=== PATIENT | female | born 1965 | race Caucasian/White ===

== ENCOUNTER → 2017-01-02 | Outpatient (CLI) | payer OTHER ==
--- NOTE | 2017-01-11 11:44 | MM ---
Reason for exam: screening (asymptomatic). Last mammogram was performed 4 years and 11 months ago. History: Patient is postmenopausal and has history of other cancer at age 50. Took hormonal contraceptives for 5 years. Physical Findings: A clinical breast exam by your physician is recommended on an annual basis and results should be correlated with mammographic findings. MG Screening Mammo w CAD Bilateral CC and MLO view(s) were taken. Prior study comparison: February 16, 2012, mammogram, performed at [facility]. There are scattered fibroglandular densities. No significant changes when compared with prior studies. ASSESSMENT: Benign, BI-RAD 2 RECOMMENDATION: Routine screening mammogram of both breasts in 1 year.
== END | disposition home or self-care (01) ==
LOC: RADMAMWWP 13:23
PROVIDERS: ATTEND Family Medicine
DX: Z12.31 Encounter for screening mammogram for malignant neoplasm of breast (principal)

== ENCOUNTER → 2017-01-17 | Outpatient (CLI) | payer OTHER ==
--- NOTE | 2017-01-17 11:08 | MR ---
EXAMINATION TYPE: MR cervical spine wo con DATE OF EXAM: 01/17/2017 10:47 AM COMPARISON: 06/01/2011 HISTORY: cervicalgia, lumbago TECHNIQUE: Multiplanar multisequence noncontrast images of the cervical spine are submitted. FINDINGS: There is abnormal signal the C2 level and the C5-C6 level of the spinal cord appears simila r to the prior exam. There is loss of the normal cervical lordosis with reversal of the cervical alig nment. At C2-C3 there is mild degenerative disc disease but no canal stenosis or disc herniation. No foramin al encroachment. At C3-C4 there is mild degenerative disc disease and facet arthropathy. Mild uncovertebral joint hype rtrophy. No canal stenosis or disc herniation. At C4-C5 there is Central disc herniation abuts the anterior margin of the spinal cord appears progre ssed from the previous exam. No displacement or cord. Neural foramina patent. At C5-C6 there is severe degenerative disc disease. Hypertrophic change of the facets and uncovertebr al joints contribute to mild bilateral foraminal encroachment greater on the right At C6-C7 there is moderate to severe degenerative disc disease with discogenic marrow changes. No for aminal encroachment, disc herniation or canal stenosis. At C7-T1 there is no disc herniation, canal stenosis or foraminal encroachment. IMPRESSION: 1. Persistent abnormal signal within the spinal cord at the C2 level and C5-6 level stable from previ ous exam. Also suspect abnormal signal within the pontomedullary junction. Findings compatible with m yelitis or myelomalacia. 2. Multilevel degenerative disc disease with severe changes seen at C5-6 and C6-C7. 3. There is progression at C4-C5 with a central broad-based disc herniation which now abuts the anter ior margin of the spinal cord. No spinal cord displacement. EXAMINATION TYPE: MR lumbar spine wo con DATE OF EXAM: 01/17/2017 10:47 AM COMPARISON: 01/09/2012 HISTORY: cervicalgia, lumbago TECHNIQUE: T1 and T2 axial and sagittal images of the lumbar spine are submitted. FINDINGS: There is no abnormal signal seen within the visualized spinal cord or paraspinal soft tissu es. At L1-2 there is no disc herniation or canal stenosis. Mild facet arthropathy. At L2-3 there is mild facet arthropathy. No disc herniation, canal stenosis, or foraminal encroachmen t. At L3-4 there is facet arthropathy with very minimal right paracentral disc bulging but no canal sten osis or focal herniation. Neural foramina patent. At L4-5 there is right lateral disc bulging with moderate right-sided foraminal encroachment. No [place] l stenosis. Mild to moderate facet arthropathy. At L5-S1 there is moderate to severe degenerative disc disease with facet arthropathy. Mild bilateral foraminal encroachment with circumferential disc bulging but no canal stenosis or focal herniation. IMPRESSION: 1. No abnormal signal within the visualized spinal cord. 2. Right lateral disc small protrusion L4-L5 results in moderate right-sided foraminal encroachment. 3. Disc bulging and hypertrophic changes L5-S1 with mild bilateral foraminal encroachment but no columba l stenosis or focal herniation. 4. Multilevel degenerative disc disease with most marked changes at L5-S1
--- NOTE | 2017-01-17 11:28 | MR ---
MRI BRAIN WITH CONTRAST CLINICAL HISTORY: G35 ms, back and leg pain, weakness, numbness, TECHNIQUE: Multiplanar, multisequence imaging of the brain and brainstem is performed without and wit h IV contrast, 15 cc of Gadolinium is administered intravenously. Demyelinating disease protocol wit h additional Sagittal Flair sequence performed. Comparison: None. FINDINGS: T2 Lesions Present : Yes Approximate Number of Lesions: 67 lesions left cerebral hemisphere pericallosal in location. Approxim ately 4 small right pericallosal lesions. One left-sided the brachium pontis lesion. Locations Identified : Pericallosal, and infratentorial. Size of Largest Lesion(s): 1. 5 mm left centrum semioval bilaterally. 2 2 mm right pericallosal region. Enhancing Lesion(s) Present: None Change from Prior: Not applicable Diffusion weighted images demonstrate no evidence of a recent infarct or other diffusion abnormality. There is no worrisome extra-axial fluid collection. The ventricular system and cisternal spaces ar e normal in size and appearance. The brain volume is age appropriate. Midline structures demonstrate normal morphology. The craniocervical junction appears within normal limits. Post contrast images demonstrate no abnormal enhancement. The dural venous sinuses appear pa tent. The visualized sinuses are clear and the globes are intact. IMPRESSION: 1. Findings compatible with a mild multiple sclerosis. No enhancing lesions or acute process seen at this time.
== END | disposition home or self-care (01) ==
LOC: RADMRIMAIN 09:35
PROVIDERS: ATTEND Nurse Practitioner Acute Care
DX: M50.221 Other cervical disc displacement at C4-C5 level (principal); M50.322 Other cervical disc degeneration at C5-C6 level; M51.27 Other intervertebral disc displacement, lumbosacral region; M51.37 Other intervertebral disc degeneration, lumbosacral region; G35 Multiple sclerosis
CPT/HCPCS: 70553; 72141; 72148; A9577

== ENCOUNTER 2017-01-19 09:50 | Day surgery (SDC) | payer OTHER ==
[2017-01-17 13:28] VITALS: BMI 26.7
[~2017-01-19 09:50] MED LIST: LACTATED RINGERS 1,000 ML IV SCH
[2017-01-19 10:37] VITALS: RESP 16; TEMP 97.9
[2017-01-19] MEDS ORDERED: LIDOCAINE 1% 20 ML VIAL (10MG/ML) FOR IV START INTRADERMA ONE (10:50)
[2017-01-19] MEDS ORDERED: LIDOCAINE 1% INJ 10MG/ML (20 ML MDV) ONE (10:59)
[2017-01-19] MEDS ORDERED: PROPOFOL 10 MG/ML 50 ML VIAL IV ONE (10:59)
--- NOTE | 2017-01-19 11:32 | P.PCN ---
Date of Procedure: 01/19/17 Procedure(s) Performed: Procedure: Total colonoscopy. Preoperative diagnosis: Screening for neoplasia. Postoperative diagnosis: Mild sigmoid diverticulosis with no evidence of acute diverticulitis, strictures, polyps or cancer. Preparation: HalfLytely prep. Sedation: Was provided by anesthesia. Brief clinical history: The patient is a 51-year-old female who is referred for this evaluation for screening for neoplasia. She has no change in bowel habits , bleeding or anemia. She does report symptoms of bloating. No definite dietary intolerance. No family history of colon cancer. Procedure: With the patient on her left lateral decubitus position and after informed consent and adequate sedation, the perianal area was inspected and it did not show any fissures or fistulas. There were no masses felt on digital rectal examination. The Olympus CFQ 160L video colonoscope was then inserted in the rectum in the usual fashion and advanced to the cecum. There was occasional diverticular orifices seen scattered in the distal sigmoid but there was no evidence of acute diverticulitis or strictures. No polyps or tumors were seen. The mucosa appeared healthy. The patient tolerated the procedure well. Plan: The patient was reassured. Discussed dietary measures. She will follow- up with you as planned and I recommended repeat exam in 10 years.
[2017-01-19 12:14] VITALS: BP 141/83; PULSE 94
== END 2017-01-19 12:25 | disposition home or self-care (01) ==
LOC: ORWHC2ENDO 09:50
DX: Z12.11 Encounter for screening for malignant neoplasm of colon (principal); K57.30 Diverticulosis of large intestine without perforation or abscess without bleeding; I10 Essential (primary) hypertension; M79.7 Fibromyalgia; G43.909 Migraine, unspecified, not intractable, without status migrainosus; K21.9 Gastro-esophageal reflux disease without esophagitis; Z79.1 Long term (current) use of non-steroidal anti-inflammatories (NSAID); Z79.899 Other long term (current) drug therapy; Z88.0 Allergy status to penicillin
CPT/HCPCS: G0121; J2001; J2704; 45378

== ENCOUNTER → 2017-03-13 | Outpatient (CLI) | payer OTHER ==
--- NOTE | 2017-03-13 14:54 | CT ---
EXAMINATION TYPE: CT abdomen pelvis wo con DATE OF EXAM: 03/13/2017 COMPARISON: None. HISTORY: Abdominal distension and discomfort for 1-[address] DLP: 378.3 mGycm Automated exposure control for dose reduction was used. FINDINGS: There is a 6.4 mm, slightly irregular nodule in the lateral basal segment of the right lowe r lobe best seen on image 8. No other definite nodules are seen. There is no pleural or pericardial f luid. The heart is not enlarged. Within the abdomen, there is mild distention of the gallbladder. Liver and spleen are normal. Both adrenal glands are normal. There is no evidence of nephrolithiasis or hydronephrosis. Limited views of the pancreas are normal. There is no significant retroperitoneal, iliac or inguinal adenopathy. The uterus and ovaries are normal. The bladder is unremarkable. There is no significant diverticular change and there is no radiographic evidence of diverticulitis. The appendix is mildly prominent measuring 7.8 mm. There is no periappendiceal inflammatory change. Small bowel loops are normal. There is no free fluid and no free air. There is degenerative disc disease and a vacuum phenomena present at L5-S1. There is mild facet arthr opathy at L5-S1 and L4-5. No bony destructive lesion is seen. IMPRESSION: 1. SOLITARY 6.4 MM RIGHT-SIDED PULMONARY NODULE. 2. MILD PROMINENCE OF THE APPENDIX WITHOUT OTHER INFLAMMATORY CHANGES. 3. MILD DEGENERATIVE CHANGE WITHIN THE SPINE.
== END | disposition home or self-care (01) ==
LOC: RADCTMAIN 13:59
PROVIDERS: ATTEND Family Medicine
DX: K38.8 Other specified diseases of appendix (principal)
CPT/HCPCS: 74176

== ENCOUNTER → 2017-03-30 | Outpatient (CLI) | payer OTHER ==
--- NOTE | 2017-03-30 09:29 | US ---
EXAMINATION TYPE: US abdomen limited DATE OF EXAM: 03/30/2017 COMPARISON: 01/12/2017 CLINICAL HISTORY: R74.8 elevated liver enzymes. Patient complains of bloating EXAM MEASUREMENTS: Liver Length: 14.1 cm Gallbladder Wall: 0.2 cm CBD: 0.5 cm Right Kidney: 10.5 x 5.3 x 5.7 cm Pancreas: seen, but not well delineated Liver: slightly heterogeneous Gallbladder: No stones seen Evidence for sonographic Tam's sign: no CBD: wnl Right Kidney: No hydronephrosis or masses seen Limited views of the pancreas show the pancreas to be echogenic and may be fatty infiltrated. The liver is normal in size without biliary dilatation. The gallbladder is normal without cholelithiasis. Gallbladder wall measures 1.6 mm. The distal common hepatic duct measures 4.9 mm. There is no sonographic Tam's sign. The right kidney is normal. The intrahepatic IVC is normal. IMPRESSION: NO ACUTE RIGHT UPPER QUADRANT ABNORMALITY.
--- NOTE | 2017-03-30 11:25 | CT ---
EXAMINATION TYPE: CT chest w con DATE OF EXAM: 03/30/2017 COMPARISON: CT abdomen pelvis 03/13/2017. HISTORY: Solitary pulmonary nodule CT DLP: 563 mGycm, Automated exposure control for dose reduction was used. CONTRAST: Performed injected with 100 ml mL of Omnipaque 300. TECHNIQUE: Axial images were obtained at 5 mm thick sections. Reconstructed images are reviewed on [facility] computer in the coronal plane. FINDINGS: Portion of the thyroid visualized is normal. There is a 0.5 cm nodule within the periphery of the right lung base. Series 4 image 41. Lungs are ot herwise clear. This corresponds to the density identified 6 x 20 17. No enlarged mediastinal or hilar adenopathy is evident. The ascending aorta diameter at the level o f the main pulmonary artery is 3.1 cm. The main pulmonary artery diameter at the bifurcation is 2.[address] sections are obtained through the upper abdomen. There is moderate fatty infiltration of [facility] liver. IMPRESSIONS: 1. Solitary pulmonary nodule right lung base. Follow-up exam in 6 months is recommended.
== END | disposition home or self-care (01) ==
LOC: RADUSMAIN 08:48
PROVIDERS: ATTEND Family Medicine
DX: R91.1 Solitary pulmonary nodule (principal); R74.8 Abnormal levels of other serum enzymes
CPT/HCPCS: 76705; 71260; Q9967

== ENCOUNTER 2017-05-10 15:34 | Inpatient (IN) | payer OTHER ==
[2017-05-10] MEDS ORDERED: SODIUM CHLORIDE 0.9% 1,000 ML IV STA ×2 (16:35→19:05)
[2017-05-10] MEDS ORDERED: SODIUM CHLORIDE 0.9% 500 ML IV STA (16:35)
[2017-05-10 17:17] LABS: Basophils % (A) 0 %; CH 32.8; CHCM 33.3; Eosinophils # (A) 0.2 k/uL (0-0.7); Eosinophils % (A) 2 %; HCT 34.2 % (34.0-46.0); HDW 1.99; HGB 11.4 gm/dL (11.4-16.0); Luc # (Auto) 0.16; Luc % (Auto) 2; Lymphocytes % (A) 12 %; MCH 32.8 pg (25.0-35.0); MCHC 33.3 g/dL (31.0-37.0); MCV 98.6 fL (80.0-100.0); Mean Platelet Volume 8.1; Monocytes # (A) 0.6 k/uL (0-1.0); Monocytes % (A) 7 %; Neutrophils # (A) 6.3 k/uL (1.3-7.7); Neutrophils % (A) 77 %; RBC 3.47 m/uL (3.80-5.40); RDW 13.2 % (11.5-15.5); WBC 8.2 k/uL (3.8-10.6); WBC (Perox) 8.25
[2017-05-10 17:19] LABS: Appearance,Urine Cloudy (Clear); Bacteria,Urine Few /hpf; Bilirubin,Urine Negative (Negative); Glucose,Urine (UA) Negative (Negative); Ketones,Urine Negative (Negative); Leukocyte Esterase,Urine Negative (Negative); Mucus,Urine Rare /hpf; Nitrite,Urine Negative (Negative); PH, Urine 5.5 (5.0-8.0); Particle Count 10812; Protein,Urine 1+ (Negative); RBC,Urine 2 /hpf (0-5); Specific Gravity,Urine 1.013 (1.001-1.035); Squamous Epithelial Cell,Urine 13 /hpf (0-4); UA Billing (MACRO vs. MICRO) MICRO; Urobilinogen,Urine <2.0 mg/dL (<2.0); WBC,Urine 6 /hpf (0-5)
[2017-05-10 17:25] LABS: Prothrombin Time 9.9 sec (9.0-12.0)
[2017-05-10 17:27] LABS: Calcium 9.8 mg/dL (8.4-10.2); Potassium 4.7 mmol/L (3.5-5.1); Total Bilirubin 0.5 mg/dL (0.2-1.3); Total Protein 7.6 g/dL (6.3-8.2)
[2017-05-10 17:39] LABS: Creatine Kinase 92 U/L (30-135)
[2017-05-10 17:52] LABS: Creatine Kinase MB 1.9 ng/mL (0.0-2.4); Troponin I <0.012 ng/mL (0.000-0.034)
--- NOTE | 2017-05-10 18:16 | CT ---
EXAMINATION TYPE: CT brain wo con DATE OF EXAM: 05/10/2017 COMPARISON: None HISTORY: Syncopal episodes. CT DLP: 978.20 mGycm Automated exposure control for dose reduction was used. FINDINGS: Ventricles of normal size. There is no mass effect nor midline shift. There is no sign of intracrania l hemorrhage. The calvarium is intact. IMPRESSION: NEGATIVE CT SCAN OF THE BRAIN.
--- NOTE | 2017-05-10 18:26 | XR ---
EXAMINATION TYPE: XR chest 2V DATE OF EXAM: 05/10/2017 COMPARISON: NONE HISTORY: Syncope TECHNIQUE: Frontal and lateral views of the chest are obtained. FINDINGS: Heart and mediastinum are normal. Lungs are clear. Diaphragm is normal. Bony thorax appear s normal. There are chest leads. IMPRESSION: Normal chest
--- NOTE | 2017-05-10 19:01 | ED ---
Dizziness HPI - General Chief Complaint: Syncope Stated Complaint: Syncope Time Seen by Provider: 05/10/17 16:09 Source: patient Mode of arrival: wheelchair Limitations: no limitations - History of Present Illness Initial Comments: 21 years old female has been passing out frequently over the last 2 days she said she passed out 7 times and also stated that she has some sort of shakes of her upper extremities as well as her head and neck she denied any history of seizure disorder she does have MS she denies any trauma to the head or neck. He denies any headaches no chest pain she does have a bit of shortness of breath and she has some alcohol couple days ago she denies any street drugs she is also complaining about abdominal pain she feels like there is a football- sized mass in her abdomen and she been quite nauseous she threw up 3 times today - Related Data Home Medications Medication Instructions Recorded Confirmed FLUoxetine HCL [PROzac] 40 mg PO DAILY 01/17/17 05/10/17 Gabapentin [Neurontin] 300 mg PO QAM 01/17/17 05/10/17 Lisinopril 40 mg PO DAILY 01/17/17 05/10/17 Omeprazole 40 mg PO QAM PRN 01/17/17 05/10/17 [place](Unknown Dose) 1 tab PO BID 05/10/17 05/10/17 Allergies Allergy/AdvReac Type Severity Reaction Status Date / Time Penicillins Allergy Rash/Hives Verified 05/10/17 16:23 Review of Systems ROS Statement: Those systems with pertinent positive or pertinent negative responses have been documented in the HPI. ROS Other: All systems not noted in ROS Statement are negative. Past Medical History Past Medical History: Cancer, Chest Pain / Angina, Fibromyalgia, GERD/Reflux, Hypertension, Syncope Additional Past Medical History / Comment(s): hx migraines, MS, abdominal pain, abdominal bloating, hx cervical cancer History of Any Multi-Drug Resistant Organisms: None Reported Past Surgical History: Tubal Ligation Additional Past Surgical History / Comment(s): removal of cancer cells from cervix Past Anesthesia/Blood Transfusion Reactions: Previous Problems w/ Anesthesia Additional Past Anesthesia/Blood Transfusion Reaction / Comment(s): diff breathing when coming out Past Psychological History: Anxiety, Depression Smoking Status: Current every day smoker Past Alcohol Use History: Occasional Past Drug Use History: None Reported - Past Family History Mother Family Medical History: No Reported History General Exam - General Exam Comments Initial Comments: General: The patient is awake and alert, in no distress, and does not appear acutely ill. GCS is 15 Skin: Skin is warm and dry and no rashes or lesions are noted. Eye: Pupils are equal, round and reactive to light, extra-ocular movements are intact; there is normal conjunctiva bilaterally. Ears, nose, mouth and throat: There are moist mucous membranes and no oral lesions. Neck: The neck is supple, there is no tenderness or JVD. Cardiovascular: There is a regular rate and rhythm. No murmur, rub or gallop is appreciated. Respiratory: To auscultation bilateral, no wheezing no rhonchi no distress respiratory garcia noticed Gastrointestinal: Meniscus tender in epigastric area marked tenderness noticed and paraumbilical area as well Back: There is no tenderness to palpation in the midline. There is no obvious deformity. Musculoskeletal: Normal ROM, no tenderness, There is no pedal edema. There is no calf tenderness or swelling. No cords were appreciated. Neurological: CN II-XII intact, Cranial nerves III through XII are intact. There are no obvious motor or sensory deficits. Coordination appears grossly intact. Speech is normal. Psychiatric: Cooperative, appropriate mood & affect, normal judgment. Limitations: no limitations Course Vital Signs 05/10/17 05/10/17 15:43 18:33 Temperature 97.2 F L Pulse Rate 115 H 100 Respiratory 20 17 Rate Blood Pressure 90/46 94/54 O2 Sat by Pulse 99 94 L Oximetry The patient was reassessed at 1900, CBC is negative head CT is normal chest x- ray is normal creatinine is 5.3 a baseline creatinine is absolutely normal she was insisting that she has excruciating abdominal pain considering that CT of the abdomen was done which is negative as well so is the urine urine is negative for any leukocytes but there were large number of hyaline noticed in the urine she be admitted to Dr. Amos service will consult Dr. Barillas for possible seizure evaluation of wall law called to Dr. Lynn for acute renal failure EKG Findings - EKG Comments: EKG Findings:: EKG is normal sinus rhythm ventricular rate is 90 UT interval is 1:30 QRS duration is 76 QT/QTc is 360/440 review of this EKG reveals some flattening of the T-wave in lead [address] elevation or ST depression noticed in the other leads Medical Decision Making - Lab Data Result diagrams: 05/10/17 17:00 05/10/17 17:00 Lab Results 05/10/17 05/10/17 05/10/17 Range/Units 17:00 17:00 17:00 WBC 8.2 (3.8-10.6) k/uL RBC 3.47 L (3.80-5.40) m/uL Hgb 11.4 (11.4-16.0) gm/dL Hct 34.2 (34.0-46.0) % MCV 98.6 (80.0-100.0) fL MCH 32.8 (25.0-35.0) pg MCHC 33.3 (31.0-37.0) g/dL RDW 13.2 (11.5-15.5) % Plt Count 315 (150-450) k/uL Neutrophils % 77 % Lymphocytes % 12 % Monocytes % 7 % Eosinophils % 2 % Basophils % 0 % Neutrophils # 6.3 (1.3-7.7) k/uL Lymphocytes # 1.0 (1.0-4.8) k/uL Monocytes # 0.6 (0-1.0) k/uL Eosinophils # 0.2 (0-0.7) k/uL Basophils # 0.0 (0-0.2) k/uL PT (9.0-12.0) sec INR (<1.2) APTT (22.0-30.0) sec Sodium 133 L (137-145) mmol/L Potassium 4.7 (3.5-5.1) mmol/L Chloride 94 L (98-107) mmol/L Carbon Dioxide 24 (22-30) mmol/L Anion Gap 15 mmol/L BUN 41 H (7-17) mg/dL Creatinine 5.33 H* (0.52-1.04) mg/dL Est GFR (MDRD) Af Amer 10 (>60 ml/min/1.73 sqM) Est GFR (MDRD) Non-Af 8 (>60 ml/min/1.73 sqM) Glucose 85 (74-99) mg/dL Calcium 9.8 (8.4-10.2) mg/dL Total Bilirubin 0.5 (0.2-1.3) mg/dL AST 77 H (14-36) U/L ALT 72 H (9-52) U/L Alkaline Phosphatase 77 (38-126) U/L Total Creatine Kinase 92 (30-135) U/L CK-MB (CK-2) 1.9 (0.0-2.4) ng/mL CK-MB (CK-2) Rel Index 2.1 Troponin I <0.012 (0.000-0.034) ng/mL Total Protein 7.6 (6.3-8.2) g/dL Albumin 4.7 (3.5-5.0) g/dL Urine Color Urine Appearance (Clear) Urine pH (5.0-8.0) Ur Specific [place] (1.001-1.035) Urine Protein (Negative) Urine Glucose (UA) (Negative) Urine Ketones (Negative) Urine Blood (Negative) Urine Nitrite (Negative) Urine Bilirubin (Negative) Urine Urobilinogen (<2.0) mg/dL Ur Leukocyte Esterase (Negative) Urine RBC (0-5) /hpf Urine WBC (0-5) /hpf Ur Squamous Epith Cells (0-4) /hpf Urine Bacteria (None) /hpf Hyaline Casts (0-2) /lpf Urine Mucus (None) /hpf 05/10/17 05/10/17 Range/Units 17:00 17:00 WBC (3.8-10.6) k/uL RBC (3.80-5.40) m/uL Hgb (11.4-16.0) gm/dL Hct (34.0-46.0) % MCV (80.0-100.0) fL MCH (25.0-35.0) pg MCHC (31.0-37.0) g/dL RDW (11.5-15.5) % Plt Count (150-450) k/uL Neutrophils % % Lymphocytes % % Monocytes % % Eosinophils % % Basophils % % Neutrophils # (1.3-7.7) k/uL Lymphocytes # (1.0-4.8) k/uL Monocytes # (0-1.0) k/uL Eosinophils # (0-0.7) k/uL Basophils # (0-0.2) k/uL PT 9.9 (9.0-12.0) sec INR 1.0 (<1.2) APTT 24.0 (22.0-30.0) sec Sodium (137-145) mmol/L Potassium (3.5-5.1) mmol/L Chloride (98-107) mmol/L Carbon Dioxide (22-30) mmol/L Anion Gap mmol/L BUN (7-17) mg/dL Creatinine (0.52-1.04) mg/dL Est GFR (MDRD) Af Amer (>60 ml/min/1.73 sqM) Est GFR (MDRD) Non-Af (>60 ml/min/1.73 sqM) Glucose (74-99) mg/dL Calcium (8.4-10.2) mg/dL Total Bilirubin (0.2-1.3) mg/dL AST (14-36) U/L ALT (9-52) U/L Alkaline Phosphatase (38-126) U/L Total Creatine Kinase (30-135) U/L CK-MB (CK-2) (0.0-2.4) ng/mL CK-MB (CK-2) Rel Index Troponin I (0.000-0.034) ng/mL Total Protein (6.3-8.2) g/dL Albumin (3.5-5.0) g/dL Urine Color Yellow Urine Appearance Cloudy H (Clear) Urine pH 5.5 (5.0-8.0) Ur Specific [place] 1.013 (1.001-1.035) Urine Protein 1+ H (Negative) Urine Glucose (UA) Negative (Negative) Urine Ketones Negative (Negative) Urine Blood Negative (Negative) Urine Nitrite Negative (Negative) Urine Bilirubin Negative (Negative) Urine Urobilinogen <2.0 (<2.0) mg/dL Ur Leukocyte Esterase Negative (Negative) Urine RBC 2 (0-5) /hpf Urine WBC 6 H (0-5) /hpf Ur Squamous Epith Cells 13 H (0-4) /hpf Urine Bacteria Few H (None) /hpf Hyaline Casts 64 H (0-2) /lpf Urine Mucus Rare H (None) /hpf Disposition Clinical Impression: Syncope, Seizures, Acute renal failure, Hypotension Disposition: ADMITTED IP TO THIS HOSP Condition: Good Referrals: Giancarlo Devi DO [Primary Care Provider] - 1-2 days
--- NOTE | 2017-05-10 19:13 | CT ---
EXAMINATION TYPE: CT abdomen pelvis wo con DATE OF EXAM: 05/10/2017 COMPARISON: 03/13/2017 HISTORY: SYNCOPE AND UNABLE TO URINATE. CT DLP: 894 mGycm Automated exposure control for dose reduction was used. TECHNIQUE: Helical acquisition of images was performed from the lung bases through the pelvis. FINDINGS: Lung bases are clear of consolidation. There is no pleural effusion. There is a very low density 6 mm nodule in the lateral right lung base of doubtful significance and unchanged. Liver spleen pancreas gallbladder appear normal. Bile ducts are not dilated. There is no adrenal mass . Kidneys have normal size and contour. There is no hydronephrosis. There is no retroperitoneal adeno lazaro. There is no ascites. Bladder distends smoothly. I see no pelvic mass. I see no intestinal wall thickening. There are no dilated loops. Appendix appears normal. I see no bony destructive process. IMPRESSION: NEGATIVE CT SCAN OF THE ABDOMEN AND PELVIS. NO EVIDENCE OF RENAL STONE OR OBSTRUCTION. NORMAL APPENDI X.
[2017-05-10] MEDS ORDERED: ACETAMINOPHEN TAB 325 MG TAB PO PRN (19:29)
[2017-05-10] MEDS ORDERED: MORPHINE SULFATE 4 MG/ML SYRINGE IV PRN (19:29)
[2017-05-10] MEDS ORDERED: NALOXONE 0.4 MG/ML 1 ML VIAL IV PRN (19:29)
[2017-05-10] MEDS ORDERED: PANTOPRAZOLE 40 MG TABLET PO PRN (19:34)
[2017-05-10 20:51] VITALS: BMI 27.4
[2017-05-10] MEDS ORDERED: LORazepam 2 MG/ML SYRINGE IV PRN ×3 (21:19)
[2017-05-10] MEDS: 1: MVI, ADULT NO.4 WITH VIT K 10 ML, THIAMINE 100 MG, FOLIC ACID 1 MG in SODIUM CHLORIDE IV SCH ×4 (22:04)
[2017-05-10] MEDS ORDERED: SODIUM CHLORIDE 0.9% 1,000 ML BAG ONE (22:04)
[2017-05-10] MEDS: THIAMINE 100 MG TAB PO SCH (22:05)
[2017-05-10] MEDS: HYDROcodone/APAP 5-325MG 1 EACH TAB PO SCH (22:05)
[2017-05-10] MEDS: NICOTINE 21MG/24HR PATCH TRANSDERM SCH (22:05)
[2017-05-11 05:51] VITALS: RESP 18
[2017-05-11 06:32] LABS: Basophils % (A) 1 %; CH 32.2; CHCM 32.2; Eosinophils # (A) 0.2 k/uL (0-0.7); Eosinophils % (A) 4 %; HDW 2.02; Luc # (Auto) 0.14; Luc % (Auto) 3; Lymphocytes % (A) 20 %; MCH 33.1 pg (25.0-35.0); MCHC 32.9 g/dL (31.0-37.0); MCV 100.5 fL (80.0-100.0); Mean Platelet Volume 7.1; Monocytes # (A) 0.4 k/uL (0-1.0); Monocytes % (A) 8 %; Neutrophils # (A) 3.2 k/uL (1.3-7.7); Neutrophils % (A) 65 %; RBC 2.99 m/uL (3.80-5.40); RDW 12.6 % (11.5-15.5); WBC 4.9 k/uL (3.8-10.6); WBC (Perox) 4.96
[2017-05-11 06:34] LABS: Calcium 8.1 mg/dL (8.4-10.2); Potassium 5.2 mmol/L (3.5-5.1); Total Bilirubin 0.3 mg/dL (0.2-1.3); Total Protein 5.6 g/dL (6.3-8.2)
[2017-05-11 06:40] LABS: HGB 9.9 gm/dL (11.4-16.0)
[2017-05-11] MEDS: 1: MVI, ADULT NO.4 WITH VIT K 10 ML, THIAMINE 100 MG, FOLIC ACID 1 MG in SODIUM CHLORIDE IV SCH ×4 (08:12)
[2017-05-11] MEDS ORDERED: LISINOPRIL 20 MG TAB PO SCH (09:00)
--- NOTE | 2017-05-11 09:22 | P.NPCON ---
History of Present Illness - Reason for Consult acute renal failure - History of Present Illness Patient is a 51-year-old white female with history of hypertension which was recently diagnosed about 3 months ago. Patient has been on lisinopril 40 mg daily. She also has an underlying history of multiple sclerosis. Patient was admitted to the hospital with complaints of lightheadedness dizziness and severe weakness and shaking in her upper extremities and her head particularly on standing up. She will had her neighbor check her blood pressure and she said it had been around 92 mmHg for the systolic. Patient denies any prior history of kidney diseases. Her blood pressure here has been in the systolic of 90s. She is currently maintained on IV fluids. Patient did report decreased urine output prior to admission. Serum creatinine was 5.3 mg/dL on initial admission it is now down to 3.37. 1+ protein as noted on the urine analysis no blood is seen. Hyaline casts are also noted Review of Systems As per HPI other systems negative no nausea vomiting diarrhea chest pain shortness of breath or cough Past Medical History Past Medical History: Cancer, Chest Pain / Angina, Fibromyalgia, GERD/Reflux, Hypertension, Syncope Additional Past Medical History / Comment(s): hx migraines, MS, abdominal pain, abdominal bloating, hx cervical cancer. 16 years old attempted suicide was hospitalized History of Any Multi-Drug Resistant Organisms: None Reported Past Surgical History: Tubal Ligation Additional Past Surgical History / Comment(s): removal of cancer cells from cervix Past Anesthesia/Blood Transfusion Reactions: Previous Problems w/ Anesthesia Additional Past Anesthesia/Blood Transfusion Reaction / Comment(s): diff breathing when coming out Past Psychological History: Anxiety, Depression Smoking Status: Current every day smoker Past Alcohol Use History: Daily Additional Past Alcohol Use History / Comment(s): smokes 2 PPD , has smoked since 14 years old Past Drug Use History: None Reported - Past Family History Mother Family Medical History: No Reported History Medications and Allergies Home Medications Medication Instructions Recorded Confirmed Type FLUoxetine HCL [PROzac] 40 mg PO DAILY 01/17/17 05/10/17 History Gabapentin [Neurontin] 300 mg PO QAM 01/17/17 05/10/17 History Lisinopril 40 mg PO DAILY 01/17/17 05/10/17 History Omeprazole 40 mg PO QAM PRN 01/17/17 05/10/17 History Welch(Unknown Dose) 1 tab PO BID 05/10/17 05/10/17 History Allergies Allergy/AdvReac Type Severity Reaction Status Date / Time Penicillins Allergy Rash/Hives Verified 05/10/17 16:23 Physical Exam Vitals: Vital Signs Temp Pulse Pulse Resp BP BP Pulse Ox 05/11/17 08:26 97.6 F 94 16 123/84 99 05/11/17 04:00 97.5 F L 88 18 113/78 98 05/10/17 20:28 97.1 F L 88 16 112/66 100 05/10/17 18:33 100 17 94/54 94 L 05/10/17 15:43 97.2 F L 115 H 20 90/46 99 Intake and Output 05/10/17 05/11/17 05/11/17 22:59 06:59 14:59 Output Total 350 Balance -350 Output: Urine 350 Other: # Voids 2 Weight 72.575 kg 72.9 kg On examination patient is comfortable awake alert oriented 3. She is not in any acute distress. Blood pressure is 123/84 Heart rate 94/m Patient is afebrile Examination of the heart S1 and S2 examination lungs bilateral breath sounds are heard Abdomen is soft nontender Examination lower extremity shows no significant edema. PHERESIS SPECIALIST exam is grossly intact patient is moving all 4 extremities. Results - Lab Results Most recent lab results Calcium 8.1 mg/dL (8.4-10.2) L 05/11/17 05:58 05/11/17 05:58 05/11/17 05:58 Assessment and Plan Plan: Assessment 1. Acute kidney injury, ATN associated with hypotension and hypoperfusion and hypovolemia. Renal function is improving. Continue to maintain patient on IV fluids. No evidence of obstruction noted on the CT of the abdomen. Repeat urine analysis in 2-3 days once patient is well hydrated. Blood pressure still remains on the lower side I will DC the lisinopril for now. 2. Hypertension with recent low blood pressures maintain patient off of antihypertensive medications for now. Once her renal function improves and blood pressure is elevated we can resume low-dose PRISCILLA inhibitor's with close monitoring of renal function. 3. Multiple sclerosis being followed by Dr. Barillas. 4. Nicotine abuse currently maintained on nicotine patch Plan Continue IV fluids. DC lisinopril. Repeat urine analysis in 2-3 days. And repeat labs in a.m. Thank you for the consultation we'll continue to follow the patient with you during her hospitalization
[2017-05-11] MEDS: HYDROcodone/APAP 5-325MG 1 EACH TAB PO SCH ×2 (11:11→21:15)
[2017-05-11] MEDS: NICOTINE 21MG/24HR PATCH TRANSDERM SCH (11:11)
[2017-05-11] MEDS: GABAPENTIN 300 MG CAP PO SCH (11:11)
[2017-05-11] MEDS: THIAMINE 100 MG TAB PO SCH ×2 (11:11→19:23)
[2017-05-11] MEDS: FLUoxetine HCL 20 MG CAP PO SCH (11:11)
--- NOTE | 2017-05-11 15:33 | P.HPIM ---
History of Present Illness H&P Date: 05/11/17 Chief Complaint: weakness and dizziness This is a 51-year-old female with the history of essential hypertension multiple sclerosis comes in to the hospital with intermittent dizziness with change in position for the last 4 days. Patient was noted to have low blood pressures on admission. Patient was also noted to have an acute kidney injury. Dilantin casts were noted on the urinalysis. Patient was started on IV fluids blood pressure medications were held and admitted to the hospital Patient states that 5 days ago patient received a new medication for multiple sclerosis unable to recall the name However over the recent times patient has been sitting out in the sun all day and had been consuming alcohol without any oral intake Patient's renal function has improved over the last 24 hours States that she feels slightly better however continues to have dizziness No fevers headaches nausea vomiting or diarrhea is reported in the recent times Review of Systems All systems: negative (Noted in HPI) Past Medical History Past Medical History: Cancer, Chest Pain / Angina, Fibromyalgia, GERD/Reflux, Hypertension, Syncope Additional Past Medical History / Comment(s): hx migraines, MS, abdominal pain, abdominal bloating, hx cervical cancer. 16 years old attempted suicide was hospitalized History of Any Multi-Drug Resistant Organisms: None Reported Past Surgical History: Tubal Ligation Additional Past Surgical History / Comment(s): removal of cancer cells from cervix Past Anesthesia/Blood Transfusion Reactions: Previous Problems w/ Anesthesia Additional Past Anesthesia/Blood Transfusion Reaction / Comment(s): diff breathing when coming out Past Psychological History: Anxiety, Depression Smoking Status: Current every day smoker Past Alcohol Use History: Daily Additional Past Alcohol Use History / Comment(s): smokes 2 PPD , has smoked since 14 years old Past Drug Use History: None Reported - Past Family History Mother Family Medical History: No Reported History Medications and Allergies Home Medications Medication Instructions Recorded Confirmed Type FLUoxetine HCL [PROzac] 40 mg PO DAILY 01/17/17 05/10/17 History Gabapentin [Neurontin] 300 mg PO QAM 01/17/17 05/10/17 History Lisinopril 40 mg PO DAILY 01/17/17 05/10/17 History Omeprazole 40 mg PO QAM PRN 01/17/17 05/10/17 History Cyclobenzaprine [Flexeril] 10 mg PO TID PRN 05/11/17 05/11/17 History Hydrochlorothiazide 25 mg PO DAILY 05/11/17 05/11/17 History Ibuprofen [Motrin] 600 mg PO Q8HR PRN 05/11/17 05/11/17 History Loratadine [Claritin] 10 mg PO DAILY 05/11/17 05/11/17 History Polyethylene Glycol 3350 [Miralax] 17 gm PO DAILY 05/11/17 05/11/17 History Allergies Allergy/AdvReac Type Severity Reaction Status Date / Time Penicillins Allergy Rash/Hives Verified 05/10/17 16:23 Physical Exam Vitals: Vital Signs Temp Pulse Pulse Resp BP BP BP 05/11/17 12:21 97.7 F 98 16 106/72 05/11/17 09:24 94/66 92/67 05/11/17 08:26 97.6 F 94 16 05/11/17 04:00 97.5 F L 88 18 05/10/17 20:28 97.1 F L 88 16 05/10/17 18:33 100 17 94/54 05/10/17 15:43 97.2 F L 115 H 20 90/46 BP BP Pulse Ox 05/11/17 12:21 100 05/11/17 09:24 92/77 05/11/17 08:26 123/84 99 05/11/17 04:00 113/78 98 05/10/17 20:28 112/66 100 05/10/17 18:33 94 L 05/10/17 15:43 99 Intake and Output 05/11/17 05/11/17 05/11/17 06:59 14:59 22:59 Intake Total 840 Output Total 350 200 Balance -350 640 Intake: Oral 840 Output: Urine 350 200 Other: # Voids 2 1 # Bowel Movements 0 Weight 72.9 kg Physical exam Gen. appearance oriented 3 in no distress Neck is supple no JVD Lungs good air entry clear to auscultation no rhonchi or wheezing Heart S1-S2 heard regular rate and rhythm no murmurs appreciated Abdomen is soft nontender no organomegaly bowel sounds are intact Neurologically cranial nerves II-12 grossly intact no focal motor or sensory deficits noted Skin no abnormalities appreciated Results CBC & Chem 7: 05/11/17 05:58 05/11/17 05:58 Labs: Abnormal Lab Results - Last 24 Hours (Table) 05/10/17 05/10/1705/10/17 Range/Units 17:00 17:00 17:00 RBC 3.47 L (3.80-5.40) m/uL Hgb (11.4-16.0) gm/dL Hct (34.0-46.0) % MCV (80.0-100.0) fL Sodium 133 L (137-145) mmol/L Potassium (3.5-5.1) mmol/L Chloride 94 L (98-107) mmol/L BUN 41 H (7-17) mg/dL Creatinine 5.33 H* (0.52-1.04) mg/dL Calcium (8.4-10.2) mg/dL AST 77 H (14-36) U/L ALT 72 H (9-52) U/L Total Protein (6.3-8.2) g/dL Albumin (3.5-5.0) g/dL Urine Appearance Cloudy H (Clear) Urine Protein 1+ H (Negative) Urine WBC 6 H (0-5) /hpf Ur Squamous Epith Cells 13 H (0-4) /hpf Urine Bacteria Few H (None) /hpf Hyaline Casts 64 H (0-2) /lpf Urine Mucus Rare H (None) /hpf 05/11/17 05/11/17 Range/Units 05:58 05:58 RBC 2.99 L (3.80-5.40) m/uL Hgb 9.9 L D (11.4-16.0) gm/dL Hct 30.0 L (34.0-46.0) % MCV 100.5 H (80.0-100.0) fL Sodium 135 L (137-145) mmol/L Potassium 5.2 H (3.5-5.1) mmol/L Chloride (98-107) mmol/L BUN 44 H (7-17) mg/dL Creatinine 3.37 H (0.52-1.04) mg/dL Calcium 8.1 L (8.4-10.2) mg/dL AST 41 H (14-36) U/L ALT (9-52) U/L Total Protein 5.6 L (6.3-8.2) g/dL Albumin 3.4 L (3.5-5.0) g/dL Urine Appearance (Clear) Urine Protein (Negative) Urine WBC (0-5) /hpf Ur Squamous Epith Cells (0-4) /hpf Urine Bacteria (None) /hpf Hyaline Casts (0-2) /lpf Urine Mucus (None) /hpf Thrombosis Risk Factor Assmnt - Choose All That Apply Any of the Below Risk Factors Present?: Yes Each Factor Represents 1 point: Age 41-60 years Thrombosis Risk Factor Assessment Total Risk Factor Score: 1 Thrombosis Risk Factor Assessment Level: Low Risk Assessment and Plan Plan: #1 orthostatic hypotension #2AKI likely prerenal with ATN and use of blood pressure medications #3 ongoing tobacco use #4 multiple sclerosis #5 essential hypertension Plan Continue IV fluids continue monitoring renal function in the a.m. Orthostatics to be done Old off blood pressure medications Patient is encouraged to ambulate We'll likely discharge the patient and I 24 hours depending on the renal function
[2017-05-11] MEDS ORDERED: KETOROLAC 30 MG/ML 1 ML VIAL IM STA (19:36)
[2017-05-11 20:47] LABS: Glucose,Whole Blood 134 mg/dL (75-99)
[2017-05-12] MEDS: 1: MVI, ADULT NO.4 WITH VIT K 10 ML, THIAMINE 100 MG, FOLIC ACID 1 MG in SODIUM CHLORIDE IV SCH ×12 (04:54→14:43)
[2017-05-12 06:36] LABS: Glucose,Whole Blood 178 mg/dL (75-99)
[2017-05-12] MEDS: INSULIN LISPRO (humaLOG) 300 UNIT/3 ML VIAL SQ SCH ×2 (07:07→12:38)
[2017-05-12 07:51] LABS: Hemoglobin A1C 5.6 % (4.2-6.1)
[2017-05-12 08:07] VITALS: TEMP 97
--- NOTE | 2017-05-12 08:37 | P.PN ---
Subjective Patient is seen for follow-up for acute kidney injury. She has an underlying history of multiple sclerosis and was recently diagnosed with hypertension about 3 months ago. Was started on CHET inhibitor's she was on February 40 mg of lisinopril. This admission was for episodes of dizziness lightheadedness increased shaking. Patient was found to be hypotensive. Serum creatinine was at 5.3 mg/dL on admission it was down to 3.37 yesterday. Patient has been maintained on IV fluids. She was hypotensive in the hospital as a as well with systolic blood pressure of 92 mmHg. Her symptoms have resolved she is feeling much better now. Her last blood pressure was 137/64. Patient is maintained on IV steroids for multiple sclerosis. Currently all blood pressure medications are hold. Objective - Vital Signs Vital signs: Vital Signs Temp 97.0 F L 05/12/17 08:00 Pulse 104 H 05/12/17 08:00 Resp 18 05/12/17 08:00 BP 137/64 05/12/17 08:00 Pulse Ox 99 05/12/17 08:00 Intake & Output 05/11/17 05/12/17 05/12/17 18:59 06:59 18:59 Intake Total 1320 Output Total 200 Balance 1120 Weight 75.1 kg 75.1 kg Intake: Oral 1320 Output: Urine 200 Other: Voiding Method Toilet Toilet # Voids 1 1 # Bowel Movements 0 0 - Exam On examination patient is comfortable awake not in any acute distress. Blood pressure is 137/64 heart rate 10 4/m she is afebrile Examination of the heart S1 and S2 Examination lungs bilateral breath sounds are heard Abdomen is soft nontender obese Examination lower extremities shows no significant edema. HEALTH AND SAFETY REPRESENTATIVE exam is grossly intact. - Labs CBC & Chem 7: 05/11/17 05:58 05/11/17 05:58 Labs: Abnormal Lab Results - Last 24 Hours (Table) 05/11/17 05/12/17 Range/Units 20:46 06:34 POC Glucose (mg/dL) 134 H 178 H (75-99) mg/dL Assessment and Plan Plan: Assessment 1. Acute kidney injury ATN secondary to hypotension and hypoperfusion currently improving. Patient is maintained on IV fluids. I will check labs today and decrease the IV fluids. Continue to maintain patient off of CHET inhibitor's. 2. Recent diagnosis of hypertension about 3 months ago started on CHET inhibitor 's as outpatient. Currently blood pressure is under control in spite of IV steroids. Continue to monitor for now. If her blood pressure is high we can start calcium channel blockers until the renal function recovers. Then we can resume Chet inhibitors at low-dose as outpatient. 3. Multiple sclerosis currently maintained on IV steroids. Patient was recently started on a medication and she believes all her symptoms started after new medication which was given as an IV injection. 4. Gastroesophageal reflux disease Plan Decrease IV fluids. Continue to hold off on CHET inhibitor's. Recheck urine analysis. Start low-dose calcium channel blockers if blood pressure is elevated.
[2017-05-12] MEDS: HYDROcodone/APAP 5-325MG 1 EACH TAB PO SCH (09:31)
[2017-05-12] MEDS: GABAPENTIN 300 MG CAP PO SCH (09:33)
[2017-05-12] MEDS: FLUoxetine HCL 20 MG CAP PO SCH (09:33)
[2017-05-12 10:30] LABS: Calcium 8.6 mg/dL (8.4-10.2); Potassium 5.1 mmol/L (3.5-5.1)
--- NOTE | 2017-05-12 12:01 | CONS ---
CHIEF COMPLAINT: Recurrent syncope. HISTORY OF PRESENT ILLNESS: The patient is a pleasant 51 -year-old female who is being evaluated by the neurology service per the request of Dr. Amos for recurrent syncope. The patient does have history of multiple sclerosis and treats with me in the outpatient clinic. She is currently on Zybrida for her disease modifying therapy. She presented yesterday to my office with complaints of dizziness which she described as a lightheaded sensation and she informed me that she was having recurrent syncopal episodes. Her blood pressure was found to be low in the clinic with systolic in the 80s and diastolic in the 50s. She was transferred to [facility] emergency room for further workup and management. The patient was on blood pressure medications at home. She takes Lisinopril 40 mg daily. In the emergency room, the blood pressure was found to be low as well and Lisinopril was stopped. The patient was also found to be having acute renal insufficiency as her BUN and creatinine were 41 and 5.33 respectively. Her liver enzymes were also elevated with an AST of 77 and an ALT of 72. Her CBC showed anemia with hemoglobin of 9.9 and hematocrit of 30%. Her CT scan of the brain was normal and her chest x-ray was normal. The patient was admitted to the hospital for further workup and management. At the time of my examination, she reports improvement in her symptoms. Nephrology has been consulted. She is complaining of low back pain which has been chronic. She denies any significant weakness but states that she sometimes feels like her legs are giving out on her. PAST MEDICAL HISTORY: Multiple sclerosis, depression, fibromyalgia, chronic low back pain, hypertension, gastroesophageal reflux disease, migraine headaches, history of cervical cancer, history of tubal ligation, anxiety disorder, depression. SOCIAL HISTORY: The patient is a current everyday smoker. She occasionally drinks alcohol. She denies any drug use. FAMILY HISTORY: Noncontributory. Home medications reviewed in the chart. ALLERGIES: PENICILLIN. REVIEW OF SYSTEMS: Constitutional: Positive for fatigue. Eyes: Negative. ENT : Negative. Cardiovascular: As mentioned earlier. Respiratory: Negative. Neurological: As mentioned earlier. Gastrointestinal: Positive for occasional heartburn. : Negative. Psychiatry: As mentioned earlier. Dermatological: Negative. Endocrine: Negative. Musculoskeletal: As mentioned earlier. PHYSICAL EXAMINATION: Vital signs show a temperature of 97.7. Pulse 98, respiratory rate 16. Blood pressure 106/72. General appearance: The patient is a well developed female who appears to be in no distress. HEENT: Normocephalic, atraumatic. No facial asymmetry is seen. Neck is supple with no masses felt. Cardiovascular: Regular rate and rhythm. Abdomen: Nontender, nondistended. Extremities showed no edema or clubbing. Neurological: The patient is alert, aware and oriented times three. Speech and language are normal. Strength is full in all four extremities. Sensory exam is normal to light touch in all four extremities. No facial asymmetry is noticed on cranial nerve testing. IMPRESSION: 1. Recurrent syncope. 2. Hypotension. 3. Dizziness. 4. Multiple sclerosis. 5. Chronic pain syndrome. 6. Acute renal insufficiency. 7. Hepatic insufficiency. RECOMMENDATIONS: The patients recurrent syncopal spells and dizziness is felt to be due to cardiovascular etiology. She was quite hypotensive in my clinic and she remained hypotensive in the emergency room. Her Lisinopril has been held. Her hypotension, renal insufficiency and anemia are felt to be the main cause of her recurrent syncope. Nephrology is following the patient. Continue IV hydration as tolerated. From a neurology standpoint, I will start her on IV Solu-Medrol as she is complaining of occasional lower extremity weakness. As for her low back pain, I will give her a single dose of Toradol 30 mg IM. Continue the rest of your current workup and management. I will continue to follow with you. Further recommendations to follow. Thank you for allowing me to participate in the care of your patient. If you have any questions, please feel free to contact me. LINNETTE
[2017-05-12 12:35] LABS: Glucose,Whole Blood 143 mg/dL (75-99)
[2017-05-12] MEDS: THIAMINE 100 MG TAB PO SCH (12:37)
[2017-05-12] MEDS: NICOTINE 21MG/24HR PATCH TRANSDERM SCH (12:37)
[2017-05-12 14:40] VITALS: BP 144/96; PULSE 91
--- NOTE | 2017-05-12 16:22 | P.DS ---
Providers Date of admission: 05/10/17 19:29 Attending physician: Slade Amos Consults: 05/10/17 19:29 Consult Physician Stat Consulting Provider: Jimenez Barillas Consult Reason/Comments: Recurrent syncope/seizure? Do you want consulting provider notified?: Yes Consult Physician Stat Consulting Provider: Jacinta Lynn Consult Reason/Comments: Acute renal failure Do you want consulting provider notified?: Yes Primary care physician: [facility] Course: Patient developed pleasant 50-year-old female came to the hospital with complaints of generalized weakness patient does have history of multiple sclerosis. Patient is found to be in acute renal failure with kidney function going up to 3.5 by has come down to 1.2 with IV fluid resuscitation. And had acute renal failure was considered secondary to prerenal azotemia along with medication-induced hypotension and nephrotoxic agents like PRISCILLA inhibitors and diuretics that she was started on recently for her high blood pressure. Although patient is hypotensive and does have positive orthostatics on admission. Patient was counseled to check the blood pressure at home twice a day and appropriate way of checking the blood pressure counseling was provided. All her anti-happens medications including PRISCILLA inhibitor and were discontinued. If patient needs antidepressive medication probably a low-dose of calcium channel isaiah will be appropriate. Patient does have history of multiple cirrhosis doesn't have any symptoms of exacerbation at this time but patient was evaluated by neurology and she was started on systemic steroids for that. Once they cleared her for discharge patient will be discharged today. And steroid therapy as per neurology. #1 orthostatic hypotension #2AKI likely prerenal with ATN and use of blood pressure medications #3 ongoing tobacco use #4 multiple sclerosis #5 essential hypertension PHYSICAL EXAMINATION: GENERAL: The patient is alert and oriented x3, not in any acute distress. Well developed, well nourished. HEENT: Pupils are round and equally reacting to light. EOMI. No scleral icterus. No conjunctival pallor. Normocephalic, atraumatic. No pharyngeal erythema. No thyromegaly. CARDIOVASCULAR: S1 and S2 present. No murmurs, rubs, or gallops. PULMONARY: Chest is clear to auscultation, no wheezing or crackles. ABDOMEN: Soft, nontender, nondistended, normoactive bowel sounds. No palpable organomegaly. MUSCULOSKELETAL: No joint swelling or deformity. EXTREMITIES: No cyanosis, clubbing, or pedal edema. NEUROLOGICAL: Gross neurological examination did not reveal any new focal deficits. SKIN: No rashes. Patient Condition at Discharge: Good Plan - Discharge Summary New Discharge Prescriptions: Discontinued Lisinopril 40 mg PO DAILY Ibuprofen [Motrin] 600 mg PO Q8HR PRN PRN Reason: Pain Hydrochlorothiazide 25 mg PO DAILY No Action Omeprazole 40 mg PO QAM PRN PRN Reason: Heartburn FLUoxetine HCL [PROzac] 40 mg PO DAILY Gabapentin [Neurontin] 300 mg PO QAM Polyethylene Glycol 3350 [Miralax] 17 gm PO DAILY Cyclobenzaprine [Flexeril] 10 mg PO TID PRN PRN Reason: Muscle Spasm Loratadine [Claritin] 10 mg PO DAILY Discharge Medication List FLUoxetine HCL [PROzac] 40 mg PO DAILY 01/17/17 [History] Gabapentin [Neurontin] 300 mg PO QAM 01/17/17 [History] Omeprazole 40 mg PO QAM PRN 01/17/17 [History] Cyclobenzaprine [Flexeril] 10 mg PO TID PRN 05/11/17 [History] Loratadine [Claritin] 10 mg PO DAILY 05/11/17 [History] Polyethylene Glycol 3350 [Miralax] 17 gm PO DAILY 05/11/17 [History] Follow up Appointment(s)/Referral(s): Jacinta Lynn MD [STAFF PHYSICIAN] - 1 Week [facility], [NON-STAFF] - Jimenez Barillas MD [STAFF PHYSICIAN] - 1 Week Giancarlo Devi DO [Primary Care Provider] - 3 Days Patient Instructions/Handouts: Syncope (DC), Hypotension (DC) Discharge Disposition: HOME SELF-CARE
--- NOTE | 2017-05-12 16:23 | P.PN ---
Subjective Principal diagnosis: Recurrent syncope This 51-year-old female continues to be evaluated by the neurology service for syncope. Was added to our office the other day with complaints of dizziness and reports of recurrent syncopal episodes. Her blood pressure was quite low in the office and she was transported to the [facility] emergency room. There is been some adjustment in her blood pressure medication. Her dizziness is improving. Her CT of the brain was normal. Nephrology is following for some kidney function abnormalities. We did give her some IV Solu-Medrol for some symptomology indicative of an MS exacerbation. Namely, some weakness in her legs that his improved with the IV steroids. Objective - Vital Signs Vital signs: Vital Signs Temp 97.0 F L 05/12/17 08:00 Pulse 91 05/12/17 12:00 Resp 18 05/12/17 12:00 BP 144/96 05/12/17 12:00 Pulse Ox 100 05/12/17 12:00 Intake & Output 05/11/17 05/12/17 05/12/17 18:59 06:59 18:59 Intake Total 1320 Output Total 200 Balance 1120 Weight 75.1 kg 75.1 kg Intake: Oral 1320 Output: Urine 200 Other: Voiding Method Toilet Toilet # Voids 1 1 1 # Bowel Movements 0 0 - Constitutional General appearance: Present: average body habitus, no acute distress - EENT Eyes: Present: EOMI, PERRLA. Absent: abnormal pupil, ptosis ENT: Present: hearing grossly normal - Neck Neck: Present: normal ROM. Absent: rigidity - Respiratory Respiratory: negative: prolonged expiration, prolonged inspiration - Cardiovascular Rhythm: regular - Gastrointestinal General gastrointestinal: Absent: distended, tenderness - Neurologic Neurologic Comment(s): She is alert awake and oriented 3. Speech-language are normal. There is no lateralizing weakness. Is no facial asymmetry. No tremors or seizure-like activities are seen. - Labs CBC & Chem 7: 05/11/17 05:58 05/12/17 09:44 Labs: Abnormal Lab Results - Last 24 Hours (Table) 05/11/17 05/12/17 05/12/17 Range/Units 20:46 06:34 09:44 Chloride 109 H (98-107) mmol/L Carbon Dioxide 19 L (22-30) mmol/L BUN 34 H (7-17) mg/dL Creatinine 1.28 H (0.52-1.04) mg/dL Glucose 110 H (74-99) mg/dL POC Glucose (mg/dL) 134 H 178 H (75-99) mg/dL 05/12/17 Range/Units 12:32 Chloride (98-107) mmol/L Carbon Dioxide (22-30) mmol/L BUN (7-17) mg/dL Creatinine (0.52-1.04) mg/dL Glucose (74-99) mg/dL POC Glucose (mg/dL) 143 H (75-99) mg/dL Assessment and Plan Plan: Do feel that her reported syncopal spells and dizziness are likely due to cardiovascular etiology. Continue treatment with cardiology. Continue IV hydration and recommendations by nephrology. She is completed her IV Solu- Medrol for her lower extremity weakness. We will follow her up in outpatient clinic is scheduled for her multiple sclerosis. Why she is cleared from a neurological standpoint. X I have performed a history and physical on the above patient. I have reviewed the above note, and agree.
[2017-05-12 16:46] LABS: Glucose,Whole Blood 109 mg/dL (75-99)
--- NOTE | 2017-05-13 12:38 | EEG ---
DATE OF EE05/12/17 REASON FOR TESTING: Syncope. DESCRIPTION OF THE PROCEDURE: This EEG was performed using a 21 channel digital electroencephalograph, following international 10-20 system. DESCRIPTION OF THE RECORDING: From the beginning of the tracing, with the patient's eyes closed, the background rhythm was mostly consisting of 9 Hz alpha frequency in the posterior occipital leads. No obvious asymmetry is seen. Frequent muscle artifacts and occasional movement artifacts were noticed. Photic stimulation was performed with a minimal driving response seen. No pathological waves were elicited. Hyperventilation was not performed. The patient remains awake throughout the tracing. No epileptiform discharges were seen throughout the tracing. Her EKG lead showed a regular rate and rhythm. INTERPRETATION: This awake EEG can be considered within normal limits. There is no asymmetry seen. No epileptiform discharges were noticed. The absence of epileptiform discharges does not rule out the diagnosis of epilepsy. Therefore, clinical correlation is recommended. MIROSLAVAD
== END 2017-05-12 19:02 | disposition home health service (06) | DRG 684 ==
LOC: EC 15:34 → 6SEL 19:29
PROVIDERS: ADMIT Hospitalist; ATTEND Hospitalist
DX: N17.0 Acute kidney failure with tubular necrosis (principal); R56.9 Unspecified convulsions; K72.90 Hepatic failure, unspecified without coma; G35 Multiple sclerosis; I10 Essential (primary) hypertension; F32.9 Major depressive disorder, single episode, unspecified; E86.1 Hypovolemia; D64.9 Anemia, unspecified; I95.1 Orthostatic hypotension; F17.200 Nicotine dependence, unspecified, uncomplicated; F41.9 Anxiety disorder, unspecified; G89.4 Chronic pain syndrome; K21.9 Gastro-esophageal reflux disease without esophagitis; M79.7 Fibromyalgia; G43.909 Migraine, unspecified, not intractable, without status migrainosus; M54.5 Low back pain; Z79.899 Other long term (current) drug therapy; Z85.41 Personal history of malignant neoplasm of cervix uteri; Z88.0 Allergy status to penicillin
CPT/HCPCS: 36415; 70450; 71020; 74176; 80048; 80053; 81001; 82550; 82553; 83036; 84484; 85025; 85610; 85730; 93005; 95816

== ENCOUNTER → 2017-05-23 | Outpatient (CLI) | payer OTHER ==
--- NOTE | 2017-05-23 23:21 | US ---
EXAMINATION TYPE: US kidneys/renal and bladder DATE OF EXAM: 05/23/2017 COMPARISON: Correlation CT 05/10/2017 CLINICAL HISTORY: 51-year-old female with N17.9 Acute Renal Failure. TECHNIQUE: Multiple sonographic images of the kidneys and bladder were obtained. FINDINGS: Right Kidney: 10.7 x 5.2 x 5.5 cm Left Kidney: 10.1 x 4.8 x 5.0 cm There is limited visualization of the bilateral lower poles due to shadowing from bowel gas. No hydro nephrosis on either side. Bladder: Underdistention of the bladder limits its evaluation. Bilateral Jets seen: no IMPRESSION: No hydronephrosis. Underdistention of the bladder limits its evaluation.
== END | disposition home or self-care (01) ==
LOC: RADUSWWP 15:58
PROVIDERS: ATTEND Family Medicine
DX: N17.9 Acute kidney failure, unspecified (principal)
CPT/HCPCS: 76770

== ENCOUNTER 2017-08-01 11:11 | Day surgery (SDC) | payer OTHER ==
[2017-07-27 15:40] VITALS: BMI 26.9
[2017-08-01 11:28] VITALS: RESP 16; TEMP 99.1
[2017-08-01] MEDS ORDERED: LIDOCAINE 1% 20 ML VIAL (10MG/ML) FOR IV START INTRADERMA ONE (11:28)
[2017-08-01] MEDS ORDERED: PROPOFOL 10 MG/ML 20 ML VIAL IV ONE (11:45)
[2017-08-01] MEDS ORDERED: LIDOCAINE 1% INJ 10MG/ML (20 ML MDV) ONE (11:45)
--- NOTE | 2017-08-01 12:17 | P.PCN ---
Date of Procedure: 08/01/17 Procedure(s) Performed: Procedure: Esophagogastroduodenoscopy and biopsy. Preoperative diagnosis: Chronic nausea and vomiting and epigastric pain. Postoperative diagnosis: 1. Small sliding hiatal hernia with no obvious esophagitis or complicated reflux disease. 2. Mild antral gastritis. 3. Multiple biopsies obtained from the duodenum, antrum and esophagus. Preparation and sedation: Was provided by anesthesia. Brief clinical history: The patient is a 51-year-old female who I have evaluated in the office as scheduled for this examination because of chronic issues with nausea and vomiting over the last 4 years as well as epigastric pain. She has not responded to medical therapy. This evaluation is to assess for peptic ulcer disease, complicated reflux disease or other pathology. Procedure: With the patient on her left lateral decubitus position and after informed consent and adequate sedation, I passed the Olympus-GIF 160 video upper endoscope through the cricopharyngeus down the esophagus. GE junction was around 36 cm from the incisors and there was a small sliding hiatal hernia. There was no esophagitis or evidence of complicated reflux disease. The endoscope was then passed into the stomach which was insufflated with air and inspected in detail including the retroflex view in the cardia. There was mottling and erythema in the antrum but no ulcers or erosions. Pyloric channel, duodenal bulb, post bulbar area and descending duodenum appeared within normal limits. I obtained biopsies from the duodenum, antrum and esophagus then the endoscope was withdrawn. The patient tolerated the procedure well. Plan: The patient was reassured. Will await biopsy results and make further plans based on her course and biopsy results. We will keep you updated on her progress.
[2017-08-01 13:03] VITALS: BP 142/95; PULSE 74
== END 2017-08-01 13:22 | disposition home or self-care (01) ==
LOC: ORWHC2ENDO 11:11
DX: K21.0 Gastro-esophageal reflux disease with esophagitis (principal); K29.50 Unspecified chronic gastritis without bleeding; K44.9 Diaphragmatic hernia without obstruction or gangrene; M79.7 Fibromyalgia; G35 Multiple sclerosis; Z72.0 Tobacco use; Z79.899 Other long term (current) drug therapy; Z79.891 Long term (current) use of opiate analgesic; Z88.0 Allergy status to penicillin
CPT/HCPCS: 88305; 88342; 43239; J2001; J2704

== ENCOUNTER → 2018-05-18 | Outpatient (CLI) | payer OTHER ==
[2018-05-18 16:29] LABS: Basophils % (A) 0 %; Eosinophils # (A) 0.1 k/uL (0-0.7); Eosinophils % (A) 3 %; HGB 10.8 gm/dL (11.4-16.0); Lymphocytes # (A) 0.8 k/uL (1.0-4.8); Lymphocytes % (A) 14 %; MCH 32.2 pg (25.0-35.0); MCHC 32.9 g/dL (31.0-37.0); MCV 97.9 fL (80.0-100.0); Mean Platelet Volume 8.4; Monocytes # (A) 0.4 k/uL (0-1.0); Monocytes % (A) 6 %; Neutrophils # (A) 4.2 k/uL (1.3-7.7); Neutrophils % (A) 75 %; Platelet Count 263 k/uL (150-450); RBC 3.37 m/uL (3.80-5.40); RDW 13.4 % (11.5-15.5); WBC 5.6 k/uL (3.8-10.6)
[2018-05-18 16:58] LABS: Albumin 4.4 g/dL (3.5-5.0); Potassium 4.5 mmol/L (3.5-5.1); Total Bilirubin 0.4 mg/dL (0.2-1.3); Total Protein 6.9 g/dL (6.3-8.2)
[2018-05-19 01:34] LABS: Hepatitis A Antibody IgM Non-Reactive (Non-Reactive); Hepatitis B Core IgM Non-Reactive (Non-Reactive)
== END | disposition home or self-care (01) ==
LOC: LABWHC1 16:18
PROVIDERS: ATTEND Nurse Practitioner Acute Care
DX: E55.9 Vitamin D deficiency, unspecified (principal); R53.83 Other fatigue; Z51.81 Encounter for therapeutic drug level monitoring
CPT/HCPCS: 36415; 80053; 80074; 82306; 82607; 84207; 85025

== ENCOUNTER → 2018-07-17 | Outpatient (CLI) | payer OTHER ==
[2018-07-17 12:45] LABS: Basophils % (A) 0 %; Eosinophils # (A) 0.1 k/uL (0-0.7); Eosinophils % (A) 2 %; HCT 39.1 % (34.0-46.0); HGB 12.8 gm/dL (11.4-16.0); Lymphocytes # (A) 0.7 k/uL (1.0-4.8); Lymphocytes % (A) 11 %; MCHC 32.8 g/dL (31.0-37.0); MCV 97.6 fL (80.0-100.0); Mean Platelet Volume 7.3; Monocytes # (A) 0.4 k/uL (0-1.0); Monocytes % (A) 6 %; Neutrophils % (A) 80 %; Platelet Count 262 k/uL (150-450); RBC 4.01 m/uL (3.80-5.40); RDW 13.5 % (11.5-15.5); WBC 6.3 k/uL (3.8-10.6)
[2018-07-17 13:11] LABS: Albumin 4.5 g/dL (3.5-5.0); Calcium 10.1 mg/dL (8.4-10.2); Total Bilirubin 0.5 mg/dL (0.2-1.3); Total Protein 7.6 g/dL (6.3-8.2)
[2018-07-17 13:14] LABS: Potassium 5.7 mmol/L (3.5-5.1)
== END | disposition home or self-care (01) ==
LOC: LABWHC1 11:39
PROVIDERS: ATTEND Nurse Practitioner Acute Care
DX: G35 Multiple sclerosis (principal)
CPT/HCPCS: 36415; 80053; 85025

== ENCOUNTER → 2018-08-20 | Outpatient (CLI) | payer OTHER ==
--- NOTE | 2018-08-20 11:53 | MR ---
EXAMINATION TYPE: MR brain wo/w con DATE OF EXAM: 08/20/2018 COMPARISON: Prior MRI brain January 17, 2017. HISTORY: MS TECHNIQUE: Multiplanar, multisequence images of the brain and brainstem is performed without and with IV contras t, utilizing 6.5 mL intravenous Gadavist gadolinium contrast is administered intravenously. Demyelin ating disease protocol with additional Sagittal Flair sequence performed. FINDINGS: T2 Lesions Present : Yes Approximate Number of Lesions: 6-10 Locations Identified : Most prominent periventricular Size of Reference Lesion(s): 1. 5 x 4 x 5 mm on axial image 19 and sagittal image 15 posterior left frontal periventricular centru m semi ovale lesion stable Enhancing Lesion(s) Present: No T1 Hypointense Lesion(s) Present: Yes Change from Prior: Stable Diffusion weighted images demonstrate no evidence of a recent infarct or other diffusion abnormality. There is no worrisome extra-axial fluid collection. The ventricular system and cisternal spaces ar e normal in size and appearance. The brain volume is age appropriate. Midline structures demonstrate normal morphology. The craniocervical junction appears within normal limits. Post contrast images demonstrate no abnormal enhancement. The dural venous sinuses appear pa tent. Distortion at level of globes is noted on current study. Visualized paranasal sinuses are clear . IMPRESSION: Mild nonspecific white matter changes redemonstrated. No new or enhancing lesions are see n. No significant change from prior MRI.
== END ==
LOC: RADMRIMAIN 10:06
PROVIDERS: ATTEND Nurse Practitioner Acute Care
DX: R90.89 Other abnormal findings on diagnostic imaging of central nervous system (principal); G35 Multiple sclerosis; Z88.0 Allergy status to penicillin
CPT/HCPCS: 70553; A9585

== ENCOUNTER → 2019-04-23 | Outpatient (CLI) | payer OTHER ==
[2019-04-23 14:52] VITALS: BP 146/86; PULSE 78; RESP 16; TEMP 98.2; BMI 25.4
--- NOTE | 2019-04-23 17:15 | P.HPOB ---
History of Present Illness H&P Date: 04/23/19 Chief Complaint: The patient is here for her routine gynecologic exam and ma mmogram. This is a 53-year-old with an LMP of 2006. The patient is here to establish with this office. It has been about 15 years since her last pelvic exam. She states over the last few years her abdominal size has grown and can feel bloated and firm. Last night, she experienced a sharp right abdominal pain which has resolved. She states this pain is new and was associated with rolling over at night. Review of Systems About 2 years ago she intentionally lost about 27 pounds, but more recently gained about 10 pounds back. She denies respiratory, cardiac, or G.I. problems. She has noticed some abdominal size increase over the past few years it has in the HPI. Past Medical History Past Medical History: Cancer, Chest Pain / Angina, Fibromyalgia, GERD/Reflux, Hypertension, Syncope Additional Past Medical History / Comment(s): hx HEADACHE, MS. PAST [employer] HISTORY: She has no history of STDs. She did have cervical dysplasia treated with a conization in 1993. History of Any Multi-Drug Resistant Organisms: None Reported Past Surgical History: Tubal Ligation Additional Past Surgical History / Comment(s): Colonization of the cervix in 1993 (Dr. Tam). Colonoscopy 2016. Past Anesthesia/Blood Transfusion Reactions: Previous Problems w/ Anesthesia Additional Past Anesthesia/Blood Transfusion Reaction / Comment(s): diff breathing when coming out Past Psychological History: Anxiety, Depression Smoking Status: Current every day smoker (1 pack per day) Past Alcohol Use History: Heavy (12 per week) Additional Past Alcohol Use History / Comment(s): Previously smoked 2 PPD , has smoked since 14 years old, STATES MAY DRINK A 12 PACK ON THE WEEKENDS Past Drug Use History: None Reported Additional History: She has been since approximately 2006, but is still sexually active with her ex-. She does not live with him. She does not work outside of the home. - Past Family History Mother Family Medical History: No Reported History Additional Family Medical History / Comment(s): Had some type of bariatric surgery. Maternal aunt has diabetes. Father Family Medical History: Cancer Additional Family Medical History / Comment(s): Leukemia Medications and Allergies Home Medications Medication Instructions Recorded Confirmed Type FLUoxetine HCL [PROzac] 40 mg PO DAILY 01/17/17 04/23/19 History Gabapentin [Neurontin] 300 mg PO QAM 01/17/17 04/23/19 History Omeprazole 40 mg PO QAM PRN 01/17/17 04/23/19 History Cyclobenzaprine [Flexeril] 10 mg PO TID PRN 05/11/17 08/01/17 History Loratadine [Claritin] 10 mg PO DAILY 05/11/17 04/23/19 History Polyethylene Glycol 3350 [Miralax] 17 gm PO DAILY PRN 05/11/17 04/23/19 History HYDROcodone/APAP 5-325MG [Rockwell 1 tab PO BID 07/27/17 04/23/19 History 5-325] Allergies Allergy/AdvReac Type Severity Reaction Status Date / Time Penicillins Allergy Rash/Hives Verified 04/23/19 14:52 Exam Vital Signs Temp Pulse Resp BP Pulse Ox 04/23/19 14:31 98.2 F 78 16 146/86 98 Intake and Output 04/23/19 04/23/19 04/23/19 06:59 14:59 22:59 Other: Weight 67.132 kg Height 5'4", weight 148 pounds, BMI 25.4. This is a well-developed well-nourished white female who is alert and oriented times 3 in no acute distress. HEENT: Within normal limits. NECK: Supple without mass or thyromegaly. CHEST AND LUNGS: scattered rhonchi with scattered inspiratory wheezes which improve with coughing. HEART: Regular rate and rhythm. BREASTS: Are without mass or discharge. AXILLARY EXAM: Negative for adenopathy. BACK: Negative for CVA tenderness. ABDOMEN: Soft, nontender, without palpable masses. PELVIC EXAM: Normal external genitalia with mild atrophy. Cervix and vagina appear normal with mild atrophy. The cervix is slightly stenotic. There is no unusual discharge. There is no evidence of prolapse. The uterus is midposition, nongravid size and nontender. There are no palpable adnexal masses or tenderness. RECTAL EXAM: rectovaginal exam is negative for mass or tenderness and is negative for occult blood. EXTREMITIES: Nontender. IMPRESSION: 1. 53-year-old menopausal female with normal gynecologic exam. 2. History of cervical dysplasia status post conization of the cervix in 1993 with no gross evidence of recurrence. 3. Smoker. 4. Subjective feeling of increased abdominal size and abdominal bloating. D ifferential diagnosis will include shift to increased abdominal fat, intestinal gas, G.I. problems and less likely, ovarian neoplasm. PLAN: 1. Pap smear was performed. 2. Self breast awareness was discussed with the patient. 3. Screening mammogram will be done today. 4. I have advised her to quit smoking. We have discussed many reasons why this is important. 5. Osteoporosis prevention was discussed. I have stressed the importance of adequate calcium, vitamin D and regular exercise. Recommended amounts of calcium and vitamin D were also discussed. 6. She states she had a pelvic ultrasound done earlier this year at [facility]. This will be obtained from her primary caregiver's office. After reviewing the ultrasoumd report, I will determine whether further gynecologic workup is necessary for the subjective increase in abdominal size. 7.She was advised to return in one year for her annual well woman exam.
--- NOTE | 2019-04-25 13:23 | MM ---
Reason for exam: screening (asymptomatic). Last mammogram was performed 2 years and 4 months ago. History: Patient is postmenopausal and has history of other cancer at age 50. Took hormonal contraceptives for 5 years. Physical Findings: A clinical breast exam by your physician is recommended on an annual basis and results should be correlated with mammographic findings. MG Screening Mammo w CAD Bilateral CC and MLO view(s) were taken. Prior study comparison: January 02, 2017, bilateral MG screening mammo w CAD. February 16, 2012, mammogram, performed at [facility]. There are scattered fibroglandular densities. No significant changes when compared with prior studies. ASSESSMENT: Benign, BI-RAD 2 RECOMMENDATION: Routine screening mammogram of both breasts in 1 year.
== END | disposition home or self-care (01) ==
LOC: WWCWWP 13:53
PROVIDERS: ATTEND Obstetrics & Gynecology
DX: Z12.31 Encounter for screening mammogram for malignant neoplasm of breast (principal)
CPT/HCPCS: 77067

== ENCOUNTER → 2020-07-28 | Outpatient (CLI) | payer OTHER ==
--- NOTE | 2020-07-28 10:35 | NM ---
EXAMINATION TYPE: NM hepatobiliary w EF DATE OF EXAM: 07/28/2020 COMPARISON: NONE HISTORY: Right upper quadrant pain TECHNIQUE: After the intravenous administration of 4.23 mCi Tc 99m Mebrofenin hepatobiliary scintigra phy is performed. Immediate images post injection. FINDINGS: There is satisfactory initial accumulation of tracer by the liver. The gallbladder is visualized wit hin 10 minutes. The small bowel activity is noted within 34 minutes. At one hour 8 ounces of oral e nsure plus is given to mimic CCK and gallbladder ejection fraction is calculated at 60 %, in the norm al range. Therefore there is no scintigraphic evidence of cystic or common bile duct obstruction, ac kot[place] or chronic cholecystitis, or biliary dyskinesia. IMPRESSION: Exam is within normal limits.
== END | disposition home or self-care (01) ==
LOC: RADNMMAIN 06:31
PROVIDERS: ATTEND Family Medicine
DX: R10.11 Right upper quadrant pain (principal); R93.5 Abnormal findings on diagnostic imaging of other abdominal regions, including retroperitoneum
CPT/HCPCS: 78226; A9537

== ENCOUNTER → 2020-11-30 | Outpatient (CLI) | payer OTHER ==
--- NOTE | 2020-11-30 14:14 | CT ---
EXAMINATION TYPE: CT abdomen w con DATE OF EXAM: 11/30/2020 COMPARISON: 05/10/2017 HISTORY: 55-year-old female Middle abdominal pain and distention TECHNIQUE: Contiguous axial scanning of the abdomen following administration of 100 ml Isovue 300 IV contrast. Delayed images through the kidneys and coronal/sagittal reconstructions performed. CT DLP: 533.2 mGycm Automated exposure control for dose reduction was used. FINDINGS: Heart normal size without pericardial effusion. Lung bases clear without pleural effusion. No focal liver lesion or biliary ductal dilatation. Portal venous system is patent. Gallbladder, adrenal glands, kidneys, spleen, pancreas appear within normal limits. No dilated small bowel, free fluid, or free air. No mesenteric or retroperitoneal lymphadenopathy. [id number] stool. Occasional left-sided colonic diverticulosis. No pericolonic inflammatory vasile nge. Small portion of a normal appendix is visualized. Bones: Moderate degenerative disc disease L5-S1 and mild within the remainder of the mid to lower lum bar spine. Pelvis not imaged. IMPRESSION: 1. NO ACUTE INFLAMMATORY PROCESS IDENTIFIED IN THE ABDOMEN TO EXPLAIN THE PATIENT'S SYMPTOMS. PELVIS NOT IMAGED. 2. OCCASIONAL LEFT-SIDED CLONIC DIVERTICULA WITHOUT EVIDENCE FOR ACUTE DIVERTICULITIS. MILD TO MODERA TE STOOL BURDEN.
== END | disposition home or self-care (01) ==
LOC: RADCTMAIN 12:04
PROVIDERS: ATTEND Family Medicine
DX: K57.30 Diverticulosis of large intestine without perforation or abscess without bleeding (principal); R19.5 Other fecal abnormalities
CPT/HCPCS: 74160; Q9967

== ENCOUNTER → 2023-01-09 | Outpatient (CLI) | payer OTHER ==
--- NOTE | 2023-01-09 13:43 | CTL ---
EXAMINATION TYPE: CT Low Dose Lung DATE OF EXAM ORDERED: 01/09/2023 HISTORY: . Lung cancer screening CT DLP: 89.[address] CTDI: 2.4 mGy Automated exposure control for dose reduction was used. SCREENING VISIT: COMPARISON: 03/30/2017 TECHNIQUE: Low dose computed tomography scan was performed through the chest at 1 mm thick sections a nd reconstructed images in multiple planes at 1 mm and [address] DIAGNOSTIC QUALITY: Satisfactory FINDINGS: There is a stable 5 mm nodule right lower lobe image 219 There is a 3 mm nodule and 1 mm subpleural nodule right lower lobe axial image [address] able There is a subpleural 2 mm nodule right upper lobe axial image 70 There is biapical pleural thickening. No consolidative pneumonia, pleural effusion or pneumothorax. N o interstitial edema. The heart size is normal and there is no coronary artery calcification. Aorta normal caliber. Mild hy pertrophic changes of the spine. Remote left-sided lateral rib fractures. IMPRESSION: 1. There are multiple 5 mm less pulmonary nodules which are essentially stable relative to prior exam and therefore likely benign. CT LUNG RAD AND CT CHEST RECOMMENDATION: Lung-Rad 2 Benign Appearance or Behavior: Continue annual sc reening with LDCT in 12 months.
== END | disposition home or self-care (01) ==
LOC: RADCTMAIN 10:57
PROVIDERS: ATTEND Family Medicine
DX: Z12.2 Encounter for screening for malignant neoplasm of respiratory organs (principal); R91.8 Other nonspecific abnormal finding of lung field; F17.210 Nicotine dependence, cigarettes, uncomplicated
CPT/HCPCS: 71271

== ENCOUNTER → 2023-10-19 | Outpatient (CLI) | payer OTHER ==
--- NOTE | 2023-10-19 20:09 | FL ---
EXAMINATION TYPE: FL arthrogram shoulder RT fluoroscopic-guided injection. DATE OF EXAM: 10/19/2023 HISTORY: 57-year-old female S46.011A TRAUMATIC TEAR RC PROCEDURES: 1. Right shoulder fluoroscopy. 2. Right glenohumeral joint arthrogram. Total fluoroscopy time: 15 seconds. Total images: 4 Total DAP: [id number] TECHNIQUE: The procedure, risks, and alternatives, were discussed with the patient, who requested that linda ríos The consent form was signed, and teach-back occurred. The site/side of the procedure was marked with a line with participation by the patient. The accompan florencio paperwork was verified for consistency. A directed history and physical exam was performed prior to the procedure. Medication reconciliation was performed by ancillary personnel. A critical pause was performed with assisting personnel just pr ior to the procedure, and the patient's identity was confirmed using 2 identifiers. Imaging guidance was utilized to select the precise skin entry point just prior to the procedure. The right shoulder was prepped and draped in the usual sterile fashion and local 1% lidocaine anesthe ankur was instilled. Under fluoroscopic guidance, a 20 gauge spinal needle was introduced into the ant erior right glenohumeral joint. Appropriate needle tip position was confirmed after a small amount of contrast injection. Approximately 12 ml of a nearly 1:1 mixture of Isovue-370 iodinated contrast and in sterile water was injected into the glenohumeral joint. The needle was then removed. The patient tolerated the procedu re well. There was no immediate complication. After the procedure, the patient's condition was unchanged. Estimated blood loss was minimal. IMPRESSION: Technically successful right glenohumeral joint arthrogram injection for CT. No immediate complicatio n.
== END | disposition home or self-care (01) ==
LOC: RADFLMAIN 12:37
PROVIDERS: ATTEND Orthopaedic Surgery
DX: S46.011A Strain of muscle(s) and tendon(s) of the rotator cuff of right shoulder, initial encounter (principal)
CPT/HCPCS: 23350; 73040; 73201; J2001; Q9967